=== PATIENT | male | born 1990 | race Caucasian/White ===

== ENCOUNTER 2017-08-08 10:04 | Observation (INO) | payer OTHER ==
--- NOTE | 2017-08-08 09:53 | PDGENHP ---
History and Physical - Chief Complaint HIP PAIN - History of Present Illness 1. S/p open MARIEL surgery, right hip 2. Bilateral Femoroacetabular impingement (MARIEL) Mixed type, with resultant labral tear (right worse than left) 3. ~~~SIJ pain HISTORY OF PRESENT ILLNESS: Annikais a 27 y.o.~very active male~who I have had the pleasure to consult on today.~I have enjoyed meeting him. He~lives in [place]; he is originally from [facility]. ~Annikaworks as a window washer. ~He has a partner but no children. ~Annikaenjoys skiing and hiking. Severo's right~hip pain started many years ago. ~He lived with his hip symptoms. ~Two years ago he presented to our service for evaluation, but opted to go with the care of an orthopedic surgery in [place] (December 2012) who performed an open MARIEL procedure on the right hip. ~Though he had increased ROM post operatively, he still felt pinching and pain. ~His right hip is worse now than when we first met him. ~Annikadoes not have~a known history of hip dysplasia. Presentation today is of~anterior and lateral right~hip pain that he feels in the groin region as well. Annikadoes not~report suffering from lower back pain episodes. Annikahas~participated in physical therapy and has not~tried other conservative measures. He~has not~received sufficient symptomatic improvement. Annikahas~utilized medication for pain management, including NSAID. Annikaalso has issues with the left hip, though mainly describes it as lack of ROM rather than pain. Annikaunderstands that he~has a hip and pelvis problem which should be researched and wishes to get a better understanding of his~hip status, followed by an establishment of a treatment strategy, hoping heBebawould be able to get back to his~well being active life. History: Past medical history: ~ Asthma, childhood, resolved Relevant familial history: None which is relevant Past surgical history: Right hip scope, 2012~ Left shoulder, 2010 Adnoidectomy, 1995 Annikadescribes problematic issues with general anesthesia which includes severely ill, with symptoms that include overheated, vomiting.. I have reviewed, verified and agree with the past medical, surgical, family and social history. Current Medications:~currently has no medications in their medication list. ALLERGIES:~has no allergies on file. Objective: Physical Examination: Annikais 5 feet 10~inches tall and weighs~165~Lbs. Annikais AAO x3; he~is well -nourished, in NAD. Skin is warm and dry. ~Breathing is non-labored. ~CV with RRR by pulse. Abdomen is soft, NTND. ~Currently, he~walks with a normal~gait. He ~has~right 2-3 cm short leg length discrepancy and presents~with no~signs of joint laxity. He~is fit looking. ~~ Trendelenburg sign is negative bilaterally and proprioception~is reduced, right~ side. Lower spine examination is negative~for sciatic or femoral nerve irritation with negative~SLR &~femoral stretch tests. Range of motion of the spine is normal~for flexion, extension, and rotations, with mild associated pain~in R lumbar side on flexion only. SIJs examination is produces pain on right side with abnormal RIGHT~JONES in relation and local tenderness. Strength, Sensation and pulses are normal - bilaterally~ Well-healed lateral R hip surgical incision, from previous hip surgery Ankles and knees exams are normal~and no~mal-alignment is evident. Hip ROM (degrees): ER At 90~hip FL IR At 90~hip FL IR Neutral hip ER Neutral hip AB AD FL EX R 40 15 P 40 15 20 P 10 90 P 0 L 40 20 40 15 30 10 100 5 Specific hip and pelvis tests: Quadrant JONES Roll Add. Longus R +++ +++ ++ +++ L +++ +++ Negative Negative Glut. Med ITB Pos. Imp R Negative Negative Negative L Negative Negative Negative Squeeze test normal for strength. Bony Symphysis pubis is pain free to touch while concentric activity of the rectus abdominis, does not~produce pain at its insertion. Ilio Psos specific tests are positive for pain during cycling for the right hip~ and remarkable for non painful snap~bilaterally. Resisted flexion on R is painful, not on L. Greater trochanteric burse is pain free on both hips. Piriformis tests: FAIR is negative, with no local signs of neuritis related to sciatic nerve. Thigh circumference is asymmetric with minor muscle atrophy on right~side. Hamstrings tests are negative~functional contraction and positive for mild bilaterally tendinopathy On a daily basis, the following percentages reflect Severo's overall total pain: Deep hip: 40% Groin (adductor region): 40% SIJ: 20% Imaging: Radiology studies which I~have personally reviewed, analyzed and measured are below: XR: AP of the hip and pelvis: Performed in a good~technique 12 Degree Caudal View Coccyx to pubic symphysis distance 1.2 cm. Specific measurements show: NSA~ Lat. Cam LCE Lat. Pincer C.Over~sign Act. Depth A.I~% Head~Coverage % Sourcil~Angle ATDmm R N +++ 51 +++ 12-1 N OC OC -5 N L N +++ 46 +++ 12-1 N OC OC -6 N [place]~Lines are preserved. Marked Pathological signs are seen in the Symphysis Pubis. Minimal Pathological signs are seen at the Ischial~tuberosity. ~~~~~~~~~~~~~ Pos. wall sign Joint Space-WBZ Joint Space-Medial SALT NAD R Negative 4.1 mm 5.1mm 12mm 16 mm L Negative 4.7 mm 4.0 mm 12 mm 14 mm Sclerosis ~~Dysplasia Cysts ISS Sup. Lat. OA R Negative Negative Negative ++ Negative L Negative Negative Negative ++ Negative X Table lateral: Anterior cam lesion is seen~on Left. ~Anterior Cam Lesion Resection on seen on Right. MRI shows: Taken 2011, before previous surgery, shows small pincer type labral, and supports mixed impingement type characteristics. CT 2012- shows mixed MARIEL with large cam and pincer. Pincer extends posteriorly. Impression and plan: Severo~is a 27 y.o.~active male~suffering from symptomatic right hip pain s/p open MARIEL procedure due to Right~Femoroacetabular impingement (MARIEL) Mixed type, with~resultant labral tear~and symptomatic left hip pain due to MARIEL with resultant labral tear causing significant disability to him~and altering~his~ sport and life activities.~~Physical examination, imaging, and his~story correspond with the diagnosis mentioned above. I have explained the diagnosis and its significance to Severo~and we have discussed the various possible treatment options~and their implications~with him. These include proceeding with conservative treatment while continuing to modify his~activities to avoid aggravating the hip further, resuming anti pain medications or intra articular injections (when needed) which can give temporary relief and a hip arthroscopy aiming to address the above pathology. ~ He may be a candidate for bilateral hip scopes during the same anesthetic event but staged procedure, even one week apart will probably be better due to the expected labral recon.. We also discussed details of labral reconstruction should this be warranted upon examination of the joint during arthroscopy. ~We suspect that he will need labral reconstruction, as he has very large pincer and most probably calcified labrum. ~~He has a CT in the system from when we first met him several years ago ; as such, we don't need additional imaging at this time. Severo~will review the info presented. Severo~is happy with this plan. I have also supplied him~with handouts, outlining the expected surgical treatment and rehab involved. I wish Severo~all the best, ~~ Samantha Tellez, PAC~ Raymundo Marie MD History Information - Allergies/Home Medication List Allergies/Adverse Reactions: cyclobenzaprine [From Flexeril] Allergy (Severe, Verified 07/19/17 10:43) possible seizures Sulfa (Sulfonamide Antibiotics) Allergy (Unknown, Verified 10/24/11 06:50) Rash Home Medications: Adderall Xr 10 mg Capsule 07/19/17 [Last Taken Unknown] Lamictal 07/19/17 [Last Taken Unknown] Oxycodone HCl 07/19/17 [Last Taken Unknown] Valium 07/19/17 [Last Taken Unknown] I have personally reviewed and updated: medical history - Social History Smoking Status: Former smoker Review of Systems Review of Systems: Physical Exam Physical Exam:
[~2017-08-08 10:04] MED LIST: ACETAMINOPHEN 500 MG TAB PO ONE; PREGABALIN 150 MG CAP PO ONE; ceFAZolin 2 GM/DEXTROSE 100 ML IV ONE
[2017-08-08] MEDS ORDERED: BUPIVACAINE 0.25% 30 ML SDV ONE (10:28)
[2017-08-08] MEDS ORDERED: EPINEPHrine 30 MG/30 ML MDV ONE (10:30)
[2017-08-08] MEDS ORDERED: LR 1,000 ML IV ONE (10:37)
[2017-08-08] MEDS ORDERED: MIDAZOLAM 2 MG/2 ML VIAL IVP ONE (11:03)
--- NOTE | 2017-08-08 11:05 | PDANEPAE ---
ANE History of Present Illness 27 year old male for right hip scope and femoraplasty. ANE Past Medical History - Cardiovascular History Hx Hypertension: No Hx Arrhythmias: No Hx Chest Pain: No Hx Coronary Artery / Peripheral Vascular Disease: No Hx CHF / Valvular Disease: No Hx Palpitations: No - Pulmonary History Hx COPD: No Hx Asthma/Reactive Airway Disease: Yes Hx Recent Upper Respiratory Infection: No Hx Oxygen in Use at Home: No Hx Sleep Apnea: No Sleep Apnea Screening Result - Last Documented: Negative Pulmonary History Comment: childhood asthma - Neurologic History Hx Cerebrovascular Accident: No Hx Seizures: No Hx Dementia: No - Endocrine History Hx Diabetes: No Hypothyroid: No Hyperthyroid: No Obesity: no - Renal History Hx Renal Disorders: Yes Renal History Comment: kidney stones last september - Liver History Hx Hepatic Disorders: No - Neurological & Psychiatric Hx Hx Neurological and Psychiatric Disorders: Yes Neurological / Psychiatric History Comment: 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 intermittent mild anxiety - Cancer History Hx Cancer: No - Congenital Disorder History Hx Congenital Disorders: No - GI History GERD: mild Hx Gastrointestinal Disorders: No Gastrointestinal History Comment: occasional reflux - Other Health History Other Health History: none - Chronic Pain History Chronic Pain: Yes (back issues) - Surgical History Prior Surgeries: shoulder sx 6yrs ago. back sx yr ago ANE Review of Systems Review of Systems: - Exercise capacity Exercise capacity: >=4 METS METS (RN): 5 METS ANE Patient History - Allergies Allergies/Adverse Reactions: cyclobenzaprine [From Flexeril] Allergy (Severe, Verified 07/19/17 10:43) possible seizures Sulfa (Sulfonamide Antibiotics) Allergy (Unknown, Verified 10/24/11 06:50) Rash - Home Medications Home medications: home medication list seen and reviewed Home Medications: Adderall Xr 10 mg Capsule 07/19/17 [Last Taken 08/07/17 09:00] Lamictal 07/19/17 [Last Taken 08/07/17 09:00] Oxycodone HCl 07/19/17 [Last Taken 08/07/17 19:00] Valium 07/19/17 [Last Taken 08/06/17] - NPO status NPO Status: no food or drink >8 hours NPO Since - Liquids (Date): 08/08/17 NPO Since - Liquids (Time): 07:00 NPO Since - Solids (Date): 08/07/17 NPO Since - Solids (Time): 22:00 - Anes Hx Anes Hx: post operative nausea - Smoking Hx Smoking Status: Current every day smoker Marijuana use: Yes - Alcohol Use Alcohol Use: Occasionally - Family Anes Hx Family Anes Hx: neg - N/A Family Hx Anesthesia Complications: none ANE Labs/Vital Signs - Vital Signs Vital Signs: reviewed preoperatively; see RN documention for details Blood Pressure: 131/65 Heart Rate: 68 Respiratory Rate: 12 O2 Sat (%): 98 Height: 177.8 cm Weight: 74.843 kg ANE Physical Exam - Airway Neck exam: FROM Mallampati Score: Class 1 Mouth exam: normal dental/mouth exam - Pulmonary Pulmonary: no respiratory distress - Cardiovascular Cardiovascular: regular rate and rhythym - ASA Status ASA Status: II ANE Anesthesia Plan Anesthesia Plan: general endotracheal anesthesia Total IV Anesthesia: No
[2017-08-08] MEDS ORDERED: SCOPOLAMINE HYDROBROMIDE 1 MG/3 DAYS PATCH TD SCH (11:15)
[2017-08-08] MEDS ORDERED: fentaNYL 100 MCG/2 ML INJ ONE ×4 (11:22→20:46)
[2017-08-08] MEDS ORDERED: LIDOCAINE 2% 5 ML SDV ONE (11:22)
[2017-08-08] MEDS ORDERED: PROPOFOL 200 MG/20 ML VIAL ONE (11:22)
[2017-08-08] MEDS ORDERED: ROCURONIUM 50 MG/5 ML VIAL ONE (11:22)
[2017-08-08] MEDS ORDERED: PROPOFOL/EMULSION 500 MG/50 ML BOTTLE IV ONE ×5 (11:28→18:58)
[2017-08-08] MEDS: DIAZEPAM 10 MG/2 ML SYR IVP PRN ×2 (12:17→20:56)
[2017-08-08] MEDS ORDERED: fentaNYL 100 MCG/2 ML INJ IVP ONE (14:15)
[2017-08-08] MEDS ORDERED: MIDAZOLAM 2 MG/2 ML VIAL ONE (14:20)
[2017-08-08] MEDS ORDERED: fentaNYL 250 MCG/5 ML INJ ONE (14:25)
[2017-08-08] MEDS ORDERED: NALOXONE HCL 0.4 MG/ML INJ IVP PRN (15:23)
[2017-08-08] MEDS ORDERED: HYDROCODONE/APAP 5/325 TAB PO PRN (15:23)
[2017-08-08] MEDS ORDERED: OXYCODONE/APAP 5/325 TAB PO PRN (15:23)
[2017-08-08] MEDS ORDERED: NS 500 ML IV PRN (15:23)
[2017-08-08] MEDS ORDERED: LR 500 ML IV PRN (15:23)
[2017-08-08] MEDS ORDERED: LABETALOL HCL 50 MG/10 ML SYR IVP PRN (15:23)
[2017-08-08] MEDS ORDERED: ACETAMINOPHEN 500 MG TAB PO PRN (15:23)
[2017-08-08] MEDS ORDERED: PROMETHAZINE HCL 25 MG/ML INJ IVP PRN (15:23)
[2017-08-08] MEDS ORDERED: METOCLOPRAMIDE 10 MG/2 ML VIAL IVP PRN (15:23)
[2017-08-08] MEDS ORDERED: HYDROmorphONE/DILAUDID 1 MG/ML INJ IVP PRN ×2 (15:23→20:37)
[2017-08-08] MEDS ORDERED: ALBUTEROL 3 ML DEYVIAL IH PRN (15:23)
[2017-08-08] MEDS ORDERED: MEPERIDINE 25 MG/ML SYR IVP PRN (15:23)
[2017-08-08] MEDS ORDERED: MEPERIDINE 25 MG/ML SYR ONE (20:17)
[2017-08-08] MEDS: fentaNYL 100 MCG/2 ML INJ IVP PRN ×2 (20:19→20:23)
[2017-08-08] MEDS ORDERED: ONDANSETRON DISINTEGRATING 4 MG TAB PO PRN (20:38)
[2017-08-08] MEDS ORDERED: HYDROmorphONE/DILAUDID 1 MG/ML INJ ONE (20:48)
[2017-08-08] MEDS ORDERED: DIAZEPAM 10 MG/2 ML SYR ONE (20:53)
[2017-08-08] MEDS ORDERED: ONDANSETRON 4 MG/2 ML VIAL ONE (20:54)
[2017-08-08] MEDS: oxyCODONE IR 15 MG TAB PO PRN (22:00)
[2017-08-08] MEDS: DIAZEPAM 2 MG TAB PO PRN (22:00)
[2017-08-08] MEDS: NAPROXEN SODIUM 220 MG TAB PO PRN (22:11)
--- NOTE | 2017-08-08 23:22 | POSTANESTH ---
Post Anesthetic Evaluation Respiratory Status: Normal, Stable Level of Consciousness/Mental Status: Mildly Sleepy, Arousable Pain Control: Adequate, Prn Tx Ordered Nausea/Vomiting Control: Adequate, Prn Tx Ordered
[2017-08-08] MEDS: HYDROmorphONE/DILAUDID 1 MG/ML INJ IVP PRN (23:35)
[2017-08-09] MEDS: HYDROmorphONE/DILAUDID 1 MG/ML INJ IVP PRN ×8 (02:02→22:27)
[2017-08-09] MEDS: oxyCODONE IR 15 MG TAB PO PRN ×3 (02:02→09:56)
[2017-08-09] MEDS: DIAZEPAM 2 MG TAB PO PRN ×3 (04:30→18:27)
[2017-08-09 07:25] VITALS: RESP 16
[2017-08-09] MEDS: oxyCODONE IR 5 MG TAB PO PRN ×3 (14:16→22:19)
--- NOTE | 2017-08-09 16:18 | ASMTCMCOM ---
CM Note CM Note Notes: Anticipate pt will d/c when medically stable. CM available for changes/needs. Date Signed: 08/09/2017 04:17 PM Electronically Signed By:RASHMI Smith
[2017-08-09] MEDS: NAPROXEN SODIUM 220 MG TAB PO PRN (20:00)
[2017-08-09 22:55] VITALS: TEMP 98.5; O2SAT 94
[2017-08-10] MEDS: DIAZEPAM 2 MG TAB PO PRN ×2 (01:45→08:14)
[2017-08-10] MEDS: HYDROmorphONE/DILAUDID 1 MG/ML INJ IVP PRN (01:46)
[2017-08-10] MEDS: oxyCODONE IR 5 MG TAB PO PRN ×4 (01:50→13:49)
[2017-08-10 07:48] VITALS: BP 133/66; PULSE 67
[2017-08-10] MEDS: NAPROXEN SODIUM 220 MG TAB PO PRN (08:14)
[2017-08-10] MEDS ORDERED: MAGNESIUM HYDROXIDE 30 ML UDCUP PO PRN (08:54)
[2017-08-10] MEDS ORDERED: POLYETHYLENE GLYCOL 3350 17 GM PKT PO PRN (08:54)
[2017-08-10] MEDS ORDERED: BISACODYL 10 MG SUPP PR PRN (08:54)
[2017-08-10] MEDS ORDERED: LACTULOSE 20 GM/30 ML UDCUP PO PRN (08:54)
[2017-08-10] MEDS ORDERED: SENNOSIDES/DOCUSATE SODIUM TAB PO SCH (09:00)
--- NOTE | 2017-08-10 14:22 | ASDISCHSUM ---
Discharge Information Plan Status:Home with No Needs Medically Cleared to Leave: Discharge Date:08/10/2017 02:15 PM CM D/C Disposition:Home, Routine, Self-Care ADT D/C Disposition:Home, Routine, Self-Care Projected Discharge Date:08/10/2017 02:15 PM Transportation at D/C: Discharge Delay Reason: Follow-Up Date:08/10/2017 02:15 PM Discharge Slot: Final Diagnosis: Placement Information Patient Contact Information Contact Name:JOHNNIE Relationship:Mother Address:[address] [place] [address] Work Phone: City:[facility] Phone: [facility]/Zip Code:[place] [address] Email: Financial Information Financial Class:[facility] Primary Plan Desc:[employer] OPEN [employer] LOCAL Primary Plan Number:[id number] Secondary Plan Desc: Secondary Plan Number: Assessment Information [facility] CM Progress Note CM Note CM Note Notes: Anticipate pt will d/c when medically stable. CM available for changes/needs. Date Signed: 08/09/2017 04:17 PM Electronically Signed By:RASHMI Smith Intervention Information
[2017-08-11] MEDS ORDERED: PATCH REMOVAL 1 EA PATCH TD SCH (11:03)
== END 2017-08-10 14:15 | disposition home or self-care (01) ==
LOC: FSGY 10:04 → F3N 20:08
PROVIDERS: ADMIT Orthopaedic Surgery Sports Medicine; ATTEND Orthopaedic Surgery Sports Medicine
PROC: 0SQ94ZZ Repair Right Hip Joint, Percutaneous Endoscopic Approach (ICD-10-PCS; principal; 2017-08-08 11:00)
DX: M25.851 Other specified joint disorders, right hip (principal); M16.11 Unilateral primary osteoarthritis, right hip
CPT/HCPCS: 29914; 29916; 76001; 97116; 97161; C1769; G0378; 97110-GP; C1713; C1762; J0171; J0690; J1170; J2250; J2405; J2704; J3010